=== PATIENT | male | born 1955 | race Caucasian/White ===

== ENCOUNTER 2016-12-21 10:13 | Day surgery (SDC) | payer MEDICAID ==
[2016-12-21] MEDS ORDERED: LIDOCAINE 2% MDV (20MG/ML) 20ML VIAL IV ONE (15:52)
[2016-12-21] MEDS ORDERED: PROPOFOL 10 MG/ML VIAL IV ONE (15:52)
[2016-12-21] MEDS ORDERED: MIDAZOLAM HCL 2MG/2ML VIAL IV ONE (15:52)
--- NOTE | 2016-12-24 12:30 | Operative Note ---
DATE OF SURGERY: 12/21/2016 SURGEON: Natali Mandel MD OPERATION: COLONOSCOPY. INDICATIONS: This is a 61-year-old male with average risk for colorectal cancer who presented for screening colonoscopy. POSTOPERATIVE DIAGNOSES: 1. Normal prostate. 2. Poor bowel preparation. 3. Left-sided colon diverticulosis. ANESTHESIA: Sedation is per Anesthesia. Pulse oximetry was monitored throughout the procedure to maintain O2 saturation of 90% or greater. Supplemental oxygen was administered via nasal cannula. Cardiac and vital signs were monitored throughout the duration of the procedure, and they were stable. The procedure of colonoscopy and risks and alternatives of the procedure, including the risk of bleeding and perforation, among others, were explained to the patient who voiced understanding and agreed to have the procedure done. Physical examination was performed, and the patient was found stable for sedation. PROCEDURE: The patient was placed in the left lateral position. Sedation was initiated. A digital rectal exam was performed and showed some mild external hemorrhoids with no palpable rectal masses. An Olympus PCF-180AL colonoscope was then inserted into the rectum under direct visualization. It was advanced to the cecum without difficulty. The ileocecal valve and appendiceal orifice were identified and photographed. The colonic mucosa was carefully examined upon introduction of the colonoscope. There were scattered diverticula noted in the sigmoid and descending colon. The bowel preparation was poor. Could not clearly visualize the right colon and the cecum. The colonoscope was then withdrawn while carefully examining the colonic mucosal surfaces. No gross lesions were noted. The colonoscope was then withdrawn into the rectum and retroflexion was performed. Grade 1 internal hemorrhoids were noted. The colonoscope was then withdrawn and the procedure was terminated. The patient tolerated the procedure well without any immediate complications. He remained with stable vital signs and was transferred to the recovery room. RECOMMENDATIONS: The patient is to have a repeat colonoscopy done given the poor bowel preparation and inability to exclude any significant lesions. Thank you for allowing me to participate in the care of your patient. CC: Dr. Christopher KRAFT
== END 2016-12-21 12:44 | disposition home or self-care (01) ==
LOC: HOP 10:13
PROVIDERS: ATTEND Internal Medicine Gastroenterology
DX: Z12.11 Encounter for screening for malignant neoplasm of colon (principal); K57.30 Diverticulosis of large intestine without perforation or abscess without bleeding; Z53.09 Procedure and treatment not carried out because of other contraindication; K64.0 First degree hemorrhoids; K64.4 Residual hemorrhoidal skin tags
CPT/HCPCS: 00810; G0121

== ENCOUNTER 2016-12-28 09:55 | Day surgery (SDC) | payer MEDICAID ==
[2016-12-28] MEDS ORDERED: PROPOFOL 10 MG/ML VIAL IV ONE (14:30)
[2016-12-28] MEDS ORDERED: LIDOCAINE 2% MDV (20MG/ML) 20ML VIAL IV ONE (14:30)
--- NOTE | 2016-12-31 12:30 | Operative Note ---
DATE OF SURGERY: 12/28/2016 SURGEON: Natali Mandel MD OPERATION: COLONOSCOPY. INDICATIONS: This is a 61-year-old man with average risk for colorectal cancer who had presented previously for colonoscopy that showed poor bowel preparation and now re-presented for repeat colonoscopy. POSTOPERATIVE DIAGNOSES: 1. Suboptimal bowel preparation. 2. Otherwise no gross lesions. ANESTHESIA: Sedation is per Anesthesia. Pulse oximetry was monitored throughout the procedure to maintain O2 saturation of 90% or greater. Supplemental oxygen was administered via nasal cannula. Cardiac and vital signs were monitored throughout the duration of the procedure, and they were stable. The procedure of colonoscopy and risks and alternatives of the procedure, including the risk of bleeding and perforation, among others, were explained to the patient who voiced understanding and agreed to have the procedure done. Physical examination was performed, and the patient was found stable for sedation. PROCEDURE: The patient was placed in the left lateral position. Sedation was initiated. A digital rectal exam was performed and showed some mild external hemorrhoids with no palpable rectal masses. An Olympus PCF-180AL colonoscope was then inserted into the rectum under direct visualization. It was advanced to the cecum without difficulty. The ileocecal valve and appendiceal orifice were identified and photographed. The colonic mucosa was carefully examined upon introduction of the colonoscope. There was solid stool debris noted in the sigmoid, descending, and ascending as well as cecum. The colonoscope was then withdrawn while carefully examining the colonic mucosal surfaces. No other lesions were noted. In the rectum, retroflexion was performed and grade 1 internal hemorrhoids were noted. The colonoscope was then withdrawn and the procedure was terminated. The patient tolerated the procedure well without any immediate complications. He remained with stable vital signs and was transferred to the recovery room. RECOMMENDATIONS: 1. The patient should be on a high-fiber diet. 2. The patient is to have a repeat colonoscopy for screening in 1 year because of the suboptimal bowel preparation. Thank you for allowing me to participate in the care of your patient. CC: Dr. Christopher KRAFT
== END 2016-12-28 11:45 | disposition home or self-care (01) ==
LOC: HOP 09:55
PROVIDERS: ATTEND Internal Medicine Gastroenterology
DX: Z12.11 Encounter for screening for malignant neoplasm of colon (principal); Z53.8 Procedure and treatment not carried out for other reasons
CPT/HCPCS: 00740; G0121

== ENCOUNTER 2017-03-22 11:48 | Day surgery (SDC) | payer MEDICAID ==
[~2017-03-22 11:48] MED LIST: ACETAMINOPHEN 1,000 MG/100 ML BTL IV ONE; CEFAZOLIN 2 Gram 2 GM/50 ML BAG IVPB ONE
[2017-03-22] MEDS ORDERED: BUPIVACAINE 0.75% W/EPI MPF 30ML VIAL IVP ONE (11:49)
[2017-03-22] MEDS ORDERED: LIDOCAINE 2% MDV (20MG/ML) 20ML VIAL IV ONE (11:49)
[2017-03-22] MEDS ORDERED: *PACU ONLY* KETAMINE HCL 10 MG/ML (20ML) VIAL IV ONE (11:49)
[2017-03-22] MEDS ORDERED: PROPOFOL 10 MG/ML VIAL IV ONE (11:49)
[2017-03-25 11:56] LABS: HEPATITIS B SURFACE ANTIBODY <0.45 mIU/mL; HEPATITIS B SURFACE ANTIGEN Nonreactive (Nonreactive); HEPATITIS C VIRUS ANTIBODY Nonreactive (Nonreactive)
--- NOTE | 2017-03-26 14:10 | Operative Note ---
DATE OF SURGERY: 03/22/2017 REFERRING PROVIDER: Sinai White MD PREOPERATIVE DIAGNOSIS: Basal cell cancer, left shoulder. POSTOPERATIVE DIAGNOSIS: Basal cell cancer, left shoulder. OPERATION: Wide excision of basal cell cancer, left shoulder. DESCRIPTION: Patient is a 61-year-old male who we took to the operating room and placed in a supine position. Rotating to right lateral position, local IV sedation was given per Department of Anesthesia. Patient's shoulder was prepped and draped in the usual sterile fashion. The area around the basal cell was mapped out with 5-10 mm margins. The area was anesthetized with a total of 10 mL of 0.25% Sensorcaine with epinephrine. An elliptical incision was made around the mass measuring 8 x 3 cm. This was taken down to the fascia with cautery. The ellipse of skin was then passed off the field. It was marked at the distal end towards his hand. The wound was then undermined and closed with 3-0 Vicryl and 3-0 nylon. Bandages were applied. He was taken to the recovery room in satisfactory condition. FINAL PATHOLOGY: Pending. CC: Sinai White MD [facility]
== END 2017-03-22 14:40 | disposition home or self-care (01) ==
LOC: SUR 11:48
PROVIDERS: ATTEND Surgery
DX: C44.619 Basal cell carcinoma of skin of left upper limb, including shoulder (principal); Z72.0 Tobacco use
CPT/HCPCS: 87390; J3490